=== PATIENT | male | born 1990 | race Caucasian/White ===

== ENCOUNTER 2016-10-17 14:51 | Emergency (ER) | payer OTHER ==
[2016-10-17 14:51] VITALS: BMI 21.9
[2016-10-17 15:00] VITALS: O2SAT 98
--- NOTE | 2016-10-17 15:31 | ED PDOC ---
Arrival/HPI - General Chief Complaint: Male Genitourinary Time Seen by Provider: 10/17/16 14:54 Historian: Patient - History of Present Illness Narrative History of Present Illness (Text): 10/17/16 15:29 26yr old male presents today with long standing hx of testicular pain. pt states he thinks he feels a lump in the right testicle and googled and is worried about cancer. pt states this has been going on for a long time. denies fever/chills. denies n/v/d/c. no abdominal pain. pt states he has occasional pain with urination. no other complaints. no medications taken for pain. Past Medical History - Provider Review Nursing Documentation Reviewed: Yes - Travel History Have you recently traveled outside [place] w/in the past 3 mons?: No - Infectious Disease Hx of Infectious Diseases: None - Tetanus Immunization Tetanus Immunization: Unknown - Cardiac Hx Cardiac Disorders: No - Pulmonary Hx Respiratory Disorders: No - Neurological Hx Neurological Disorder: No - HEENT Hx HEENT Disorder: No - Renal Hx Renal Disorder: No - Endocrine/Metabolic Hx Endocrine Disorders: No - Hematological/Oncological Hx Blood Disorders: No - Integumentary Hx Dermatological Disorder: No - Musculoskeletal/Rheumatological Hx Musculoskeletal Disorders: No - Gastrointestinal Hx Gastrointestinal Disorders: No - Genitourinary/Gynecological Hx Genitourinary Disorders: No - Psychiatric Hx Psychophysiologic Disorder: No Hx Substance Use: No - Surgical History Hx Orthopedic Surgery: Yes Other/Comment: acl both knees, R HAND - Anesthesia Hx Anesthesia: No Hx Anesthesia Reactions: No Hx Malignant Hyperthermia: No Family/Social History - Physician Review Nursing Documentation Reviewed: Yes Family/Social History: Unknown Family HX Smoking Status: Former Smoker Hx Alcohol Use: No Hx Substance Use: No Allergies/Home Meds Allergies/Adverse Reactions: Allergies Penicillins Allergy (Verified 06/18/16 12:43) SWELLING Review of Systems - Review of Systems Constitutional: absent: Fatigue, Fevers Respiratory: absent: SOB, Cough Cardiovascular: absent: Chest Pain, Palpitations Gastrointestinal: absent: Abdominal Pain, Nausea, Vomiting Genitourinary Male: Dysuria, Other (testicular pain). absent: Frequency, Hematuria, Urinary Output Changes Musculoskeletal: absent: Arthralgias, Back Pain, Neck Pain Skin: absent: Rash, Pruritis Neurological: absent: Headache, Dizziness Psychiatric: absent: Anxiety, Depression Physical Exam Vital Signs Reviewed: Yes Vital Signs Temp Pulse Resp BP Pulse Ox 10/17/16 16:49 98.0 F 96 H 18 138/76 98 10/17/16 14:55 98.2 F 120 H 17 140/80 98 Temperature: Afebrile Blood Pressure: Normal Pulse: Tachycardic Respiratory Rate: Normal Appearance: Positive for: Well-Appearing, Non-Toxic, Comfortable Pain Distress: None Mental Status: Positive for: Alert and Oriented X 3 - Systems Exam Head: Present: Atraumatic Neck: Present: Normal Range of Motion Respiratory/Chest: Present: Clear to Auscultation Cardiovascular: Present: Tachycardic. No: Murmurs Abdomen: Present: Normal Bowel Sounds. No: Tenderness, Distention, Peritoneal Signs, Rebound, Guarding Genitourinary Male: Present: Normal External Genitalia, Circumcised Penis, Testicle Tenderness, Other (chaparoned by junaid YEUNG). No: Penile Discharge, Penile Swelling, Masses, Erythema, Hernias, Testicle Swelling Back: Present: Normal Inspection. No: CVA Tenderness, Midline Tenderness, Paraspinal Tenderness Upper Extremity: Present: Normal Inspection Lower Extremity: Present: Normal Inspection Neurological: Present: GCS=15 Skin: Present: Warm, Dry, Normal Color. No: Rashes Psychiatric: Present: Alert, Oriented x 3 Medical Decision Making ED Course and Treatment: 10/17/16 15:31 26yr old male with long time history of testicular pain. noticed lump. no palpable lump appreciated; no erythema; minimally tender testicles bilaterally. Testicular US; FINDINGS: RIGHT TESTICLE: Measures 5.0 x 2.2 x 3.1 cm. Homogeneous echotexture. Blood flow is demonstrated. RIGHT EPIDIDYMIS: Unremarkable. LEFT TESTICLE: Measures 5.0 x 2.2 x 3.1 cm. Homogeneous echotexture. Blood flow is demonstrated. LEFT EPIDIDYMIS: Unremarkable. HYDROCELE: Small bilateral hydroceles. VARICOCELE: Bilateral varicoceles. OTHER FINDINGS: None. IMPRESSION: Small bilateral hydroceles. Bilateral varicoceles. No focal mass evident on the submitted images. The technologist reports no evidence of palpable mass. UA; trace blood gc/chlamydia pending pt reassessment; pt non toxic well appearing; no distress. discussed all results in depth with patient and advised f/u with urologist and pmd. advised return if symptoms worsen, persist or if new symptoms develop. Patient verbalizes understanding of discharge instructions and need for immediate followup. all aspects of this case were discussed the attending of record. impression; testicular pain, varicocele, hydrocele motrin every 6 hours as needed for pain follow up with the urologist within the next 2 days follow up with the primary care physician within the next 2 days return if symptoms worsen,persist or if new symptoms develop. 10/17/16 16:51 10/17/16 17:42 - Lab Interpretations Lab Results: Lab Results 10/17/16 16:00: Urine Color Yellow, Urine Appearance Clear, Urine pH 6.0, Ur Specific [place] 1.025, Urine Protein Negative, Urine Glucose (UA) Negative, Urine Ketones Negative, Urine Blood Trace-intact H, Urine Nitrate Negative, Urine Bilirubin Negative, Urine Urobilinogen 0.2, Ur Leukocyte Esterase Negative , Urine RBC 0 - 2, Urine WBC 0 - 2, Ur Epithelial Cells 0 - 2, Urine Bacteria Trace - RAD Interpretation Radiology Orders: 10/17/16 15:11 TESTES DUPLEX COMPLETE [US] Stat - Medication Orders Current Medication Orders: Discontinued Medications Ketorolac Tromethamine (Toradol) 30 mg IM STAT STA Stop: 10/17/16 16:53 Disposition/Present on Arrival - Present on Arrival Any Indicators Present on Arrival: No History of DVT/PE: No History of Uncontrolled Diabetes: No Urinary Catheter: No History of Decub. Ulcer: No History Surgical Site Infection Following: None - Disposition Have Diagnosis and Disposition been Completed?: Yes Diagnosis: Varicocele, Hydrocele Disposition: HOME/ ROUTINE Disposition Time: 17:43 Patient Plan: Discharge Patient Problems: Current Active Problems Problem Status Diagnosed Hydrocele Acute Varicocele Acute Condition: GOOD Discharge Instructions (ExitCare): Varicocele (ED), Hydrocele (ED) Additional Instructions: motrin every 6 hours as needed for pain follow up with the urologist within the next 2 days follow up with the primary care physician within the next 2 days return if symptoms worsen,persist or if new symptoms develop. Prescriptions: Ibuprofen [Motrin] 600 mg PO Q6H PRN #20 tab PRN Reason: pain/fever reduction Referrals: Jarad Lee MD [Primary Care Provider] - Follow up with primary Nadine Epstein MD [Staff Provider] - Follow up with primary Forms: WORK NOTE
[2016-10-17 16:49] VITALS: BP 138/76; PULSE 96; RESP 18; TEMP 98
--- NOTE | 2016-10-17 16:49 | US ---
HISTORY: testicular pain and lump TECHNIQUE: Realtime sonography through the scrotum with color and doppler flow. COMPARISON: None Available. FINDINGS: RIGHT TESTICLE: Measures 5.0 x 2.2 x 3.1 cm. Homogeneous echotexture. Blood flow is demonstrated. RIGHT EPIDIDYMIS: Unremarkable. LEFT TESTICLE: Measures 5.0 x 2.2 x 3.1 cm. Homogeneous echotexture. Blood flow is demonstrated. LEFT EPIDIDYMIS: Unremarkable. HYDROCELE: Small bilateral hydroceles. VARICOCELE: Bilateral varicoceles. OTHER FINDINGS: None. IMPRESSION: Small bilateral hydroceles. Bilateral varicoceles. No focal mass evident on the submitted images. The technologist reports no evidence of palpable mass.
[2016-10-17 17:22] LABS: URINE BILIRUBIN NEGATIVE (NEGATIVE); URINE BLOOD TRACE-INTACT (NEGATIVE); URINE GLUCOSE (UA) NEGATIVE (NEGATIVE); URINE KETONE NEGATIVE (NEGATIVE); URINE LEUKOCYTE ESTERASE NEGATIVE Leu/uL (NEGATIVE); URINE PROTEIN NEGATIVE mg/dL (<30 mg/dL); URINE UROBILINOGEN 0.2 E.U./dL (<1 E.U./dL)
[2016-10-17 17:36] LABS: URINE APPEARANCE CLEAR (CLEAR); URINE COLOR YELLOW (YELLOW)
[2016-10-17 17:46] LABS: URINE BACTERIA TRACE (NEG); URINE EPITHELIAL CELLS 0 - 2 /hpf (0-5); URINE RBC 0 - 2 /hpf (0-2); URINE WBC 0 - 2 /hpf (0-6)
== END 2016-10-17 18:00 | disposition home or self-care (01) ==
LOC: ED 14:51
DX: I86.1 Scrotal varices (principal); N43.3 Hydrocele, unspecified

== ENCOUNTER 2016-11-04 05:54 | Emergency (ER) | payer SELFPAY ==
[2016-11-04 05:56] VITALS: BMI 23.1
--- NOTE | 2016-11-04 06:08 | ED PDOC ---
Arrival/HPI - General Chief Complaint: GI Problem Time Seen by Provider: 11/04/16 06:04 Historian: Patient - History of Present Illness Narrative History of Present Illness (Text): 11/04/16 06:07 Brook Muniz is a 26 year old male who presents to the Emergency department complaining of nausea and multiple episodes of vomiting for 2 days after eating out at a diner. Patient also reports associated upper abdominal pain and bilateral hand muscle cramping. Patient denies any fever, chills, chest pain, shortness of breath, diarrhea, urinary symptoms, back pain, neck pain, headache, dizziness, or any other complaints. Time/Duration: < week (2 days) Symptom Onset: Gradual Symptom Course: Unchanged Activities at Onset: Rest, Light Context: Home Past Medical History - Provider Review Nursing Documentation Reviewed: Yes - Infectious Disease Hx of Infectious Diseases: None - Tetanus Immunization Tetanus Immunization: Unknown - Cardiac Hx Cardiac Disorders: No - Pulmonary Hx Asthma: Yes - Neurological Hx Neurological Disorder: No - HEENT Hx HEENT Disorder: No - Renal Hx Renal Disorder: No - Endocrine/Metabolic Hx Endocrine Disorders: No - Hematological/Oncological Hx Blood Disorders: No - Integumentary Hx Dermatological Disorder: No - Musculoskeletal/Rheumatological Other/Comment: R Knee ACL - Gastrointestinal Hx Gastrointestinal Disorders: No - Genitourinary/Gynecological Hx Genitourinary Disorders: No - Psychiatric Hx Psychophysiologic Disorder: No Hx Substance Use: No - Surgical History Hx Orthopedic Surgery: Yes Other/Comment: acl both knees, R HAND - Anesthesia Hx Anesthesia: Yes Hx Anesthesia Reactions: No Hx Malignant Hyperthermia: No Family/Social History - Physician Review Nursing Documentation Reviewed: Yes Family/Social History: No Known Family HX Smoking Status: Former Smoker Hx Alcohol Use: No Hx Substance Use: No Allergies/Home Meds Allergies/Adverse Reactions: Allergies Penicillins Allergy (Verified 06/18/16 12:43) SWELLING Review of Systems - Physician Review All systems were reviewed & negative as marked: Yes - Review of Systems Constitutional: Normal. absent: Fevers Eyes: Normal ENT: Normal Respiratory: Normal. absent: SOB, Cough Cardiovascular: Normal. absent: Chest Pain Gastrointestinal: Abdominal Pain, Nausea, Vomiting. absent: Diarrhea Genitourinary Male: Normal. absent: Dysuria, Frequency, Hematuria, Urinary Output Changes Musculoskeletal: Other (+bilateral hand cramping). absent: Back Pain, Neck Pain Skin: Normal. absent: Rash Neurological: Normal. absent: Headache, Dizziness Endocrine: Normal Hemo/Lymphatic: Normal Psychiatric: Normal Physical Exam Vital Signs Reviewed: Yes Vital Signs Temp Pulse Resp BP Pulse Ox 11/04/16 06:16 98.0 F 79 16 0/0 L 100 Temperature: Afebrile Blood Pressure: Normal Pulse: Regular Respiratory Rate: Normal Appearance: Positive for: Well-Appearing, Non-Toxic, Comfortable Pain Distress: None Mental Status: Positive for: Alert and Oriented X 3 - Systems Exam Head: Present: Atraumatic, Normocephalic Pupils: Present: PERRL Extroacular Muscles: Present: EOMI Conjunctiva: Present: Normal Mouth: Present: Moist Mucous Membranes Neck: Present: Normal Range of Motion Respiratory/Chest: Present: Clear to Auscultation, Good Air Exchange. No: Respiratory Distress, Accessory Muscle Use Cardiovascular: Present: Regular Rate and Rhythm, Normal S1, S2. No: Murmurs Abdomen: Present: Tenderness (RUQ tenderness), Normal Bowel Sounds. No: Distention, Peritoneal Signs Back: Present: Normal Inspection Upper Extremity: Present: Normal Inspection. No: Cyanosis, Edema Lower Extremity: Present: Normal Inspection. No: Edema Neurological: Present: GCS=15, CN II-XII Intact, Speech Normal Skin: Present: Warm, Dry, Normal Color. No: Rashes Psychiatric: Present: Alert, Oriented x 3, Normal Insight, Normal Concentration Medical Decision Making ED Course and Treatment: 11/04/16 06:08 Impression: 26 year old male complaining of upper abdominal pain, nausea, vomiting, and bilateral hand muscle cramping for 2 days. Plan: -- US Gallbladder and Pancreas -- Labs, lipase -- Urinalysis -- IV fluids -- Zofran -- Toradol -- Pepcid -- Reassess and disposition Prior Visits: Notes and results from previous visits were reviewed. Progress Notes: 11/04/16 07:00 Case endorsed to /pending labs/ultrasound/reassess/final disposition - RAD Interpretation Radiology Orders: 11/04/16 06:08 GALLBLADDER & PANCREAS [US] Stat - Medication Orders Current Medication Orders: Sodium Chloride (Sodium Chloride 0.9%) 1,000 mls @ 999 mls/hr IV .Q1H1M STA Stop: 11/04/16 07:09 Discontinued Medications Famotidine (Pepcid) 20 mg IVP STAT STA Stop: 11/04/16 06:10 Ketorolac Tromethamine (Toradol) 30 mg IVP ONCE ONE Stop: 11/04/16 06:10 Ondansetron HCl (Zofran Inj) 4 mg IVP ONCE ONE Stop: 11/04/16 06:10 - Scribe Statement The provider has reviewed the documentation as recorded by the Una Morton Provider Attestation: All medical record entries made by the Una were at my direction and personally dictated by me. I have reviewed the chart and agree that the record accurately reflects my personal performance of the history, physical exam, medical decision making, and the department course for this patient. I have also personally directed, reviewed, and agree with the discharge instructions and disposition. Disposition/Present on Arrival - Present on Arrival Any Indicators Present on Arrival: No History of DVT/PE: No History of Uncontrolled Diabetes: No Urinary Catheter: No History of Decub. Ulcer: No History Surgical Site Infection Following: None - Disposition Have Diagnosis and Disposition been Completed?: No Diagnosis: Abdominal pain, Vomiting, Diarrhea Disposition Time: 07:00 Condition: STABLE
[2016-11-04] MEDS ORDERED: Sodium Chloride 0.9% 1,000 ML IV STA (06:09)
[2016-11-04 06:53] LABS: HEMATOCRIT 44.2 % (42.0-52.0); MEAN CELL VOLUME 86.2 fL (80.0-105.0); MEAN CORPUSCULAR HEMOGLOBIN 30.2 pg (25.0-35.0); MEAN CORPUSCULAR HGB CONC 35.1 g/dl (31.0-37.0); MEAN PLATELET VOLUME 10.7 fl (7.0-11.0); RED CELL DISTRIBUTION WIDTH 12.4 % (11.5-14.5); WHITE BLOOD COUNT 8.1 10^3/ul (4.5-11.0)
[2016-11-04 07:00] LABS: ALB/GLOB RATIO 1.3 (1.1-1.8); ALKALINE PHOSPHATASE 75 U/L (38-133); ALT/SGPT 34 U/L (7-56); AST/SGOT 27 U/L (15-59); BILIRUBIN,TOTAL 2.1 mg/dL (0.2-1.3); BLOOD UREA NITROGEN 11 mg/dL (7-21); CARBON DIOXIDE 23 mmol/L (21-33); CHLORIDE 100 mmol/L (98-107); GFR AFRICAN-AMERICAN > 60; GLUCOSE,RANDOM 144 mg/dL (70-110); LIPASE 63 U/L (23-300); POTASSIUM 3.5 mmol/L (3.6-5.0); SODIUM 140 mmol/L (132-148); TOTAL PROTEIN 8.4 g/dL (5.8-8.3)
--- NOTE | 2016-11-04 07:28 | ED PDOC ---
Physical Exam Vital Signs Temp Pulse Resp BP Pulse Ox 11/04/16 06:16 98.0 F 79 16 0/0 L 100 Medical Decision Making ED Course and Treatment: 11/04/16 07:00 Case signed out to me by Dr. Celis pending Ultrasound and labs. 10:00 the pt improved after treatment. he has a benign abdominal exam. he says this pain has been recurrent for several months and I suggest he follow up with a GI specialist, especially in light of the hepatic steatosis which was also present on CT a couple months ago. he is comfortable w dc at this time, will return if worse. HISTORY: Right upper quadrant pain COMPARISON: CT abdomen and pelvis from 09/16/2016 TECHNIQUE: Grayscale imaging was performed. FINDINGS: LIVER: Measures 18.6 cm in length. There is mild diffuse increased echogenicity of the liver parenchyma. No mass. No intrahepatic bile duct dilatation. GALLBLADDER: Unremarkable. No gallstones. COMMON BILE DUCT: Measures 5.0 mm. No stones. No dilatation. PANCREAS: Unremarkable as visualized. No mass. No ductal dilatation. RIGHT KIDNEY: Measures 11.6 cm in length. Normal echogenicity. No calculus, mass, or hydronephrosis. AORTA: No aneurysmal dilatation. IVC: Unremarkable. OTHER FINDINGS: None . IMPRESSION: Mild hepatomegaly. Diffuse increased echogenicity in the liver may reflect hepatic steatosis however parenchymal infectious/ inflammatory etiologies cannot be entirely excluded. Clinical and laboratory correlation is advised. No evidence of cholelithiasis or biliary dilatation. - Lab Interpretations Lab Results: 11/04/16 06:30 11/04/16 06:30 Lab Results 11/04/16 06:30: WBC 8.1, RBC 5.13, Hgb 15.5, Hct 44.2, MCV 86.2, MCH 30.2, MCHC 35.1, RDW 12.4, Plt Count 250, MPV 10.7, Sodium 140, Potassium 3.5 L, Chloride 100, Carbon Dioxide 23, Anion Gap 21 H, BUN 11, Creatinine 1.0, Est GFR ( Amer) > 60, Est GFR (Non-Af Amer) > 60, Random Glucose 144 H, Calcium 10.0, Total Bilirubin 2.1 H, AST 27, ALT 34, Alkaline Phosphatase 75, Total Protein 8.4 H, Albumin 4.8, Globulin 3.6, Albumin/Globulin Ratio 1.3, Lipase 63 - RAD Interpretation Radiology Orders: 11/04/16 06:08 GALLBLADDER & PANCREAS [US] Stat - Medication Orders Current Medication Orders: Discontinued Medications Famotidine (Pepcid) 20 mg IVP STAT STA Stop: 11/04/16 06:10 Last Admin: 11/04/16 06:36 Dose: 20 MG IVP Administration Document 11/04/16 06:36 ANDERSON (Rec: 11/04/16 06:36 [id number] Charges for Administration # of IVP Administrations 1 Sodium Chloride (Sodium Chloride 0.9%) 1,000 mls @ 999 mls/hr IV .Q1H1M STA Stop: 11/04/16 07:09 Last Admin: 11/04/16 06:27 Dose: 999 MLS/HR eMAR Start Stop Document 11/04/16 06:27 ANDERSON (Rec: 11/04/16 06:28 ANDERSON [facility] [id number]) Intravenous Solution Start Date 11/04/16 Start Time 06:27 Ketorolac Tromethamine (Toradol) 30 mg IVP ONCE ONE Stop: 11/04/16 06:10 Last Admin: 11/04/16 06:36 Dose: 30 MG IVP Administration Document 11/04/16 06:36 ANDERSON (Rec: 11/04/16 06:36 [id number]) Charges for Administration # of IVP Administrations 1 Ondansetron HCl (Zofran Inj) 4 mg IVP ONCE ONE Stop: 11/04/16 06:10 Last Admin: 11/04/16 06:36 Dose: 4 MG IVP Administration Document 11/04/16 06:36 ANDERSON (Rec: 11/04/16 06:36 [facility] [id number]) Charges for Administration # of IVP Administrations 1 - Scribe Statement The provider has reviewed the documentation as recorded by the Scribe Madhu Bates All medical record entries made by the Scribe were at my direction and personally dictated by me. I have reviewed the chart and agree that the record accurately reflects my personal performance of the history, physical exam, medical decision making, and the department course for this patient. I have also personally directed, reviewed, and agree with the discharge instructions and disposition. Disposition/Present on Arrival - Present on Arrival Any Indicators Present on Arrival: No History of DVT/PE: No History of Uncontrolled Diabetes: No Urinary Catheter: No History of Decub. 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 Return to the ER for any worsening symptoms or for any other concerns. Prescriptions: Polyethylene Glycol 3350 [Miralax] 17 g PO DAILY PRN #1 bottle PRN Reason: Constipation Naproxen 500 mg PO Q12H PRN #8 tab PRN Reason: Pain, Moderate (4-7) Famotidine [Pepcid] 20 mg PO DAILY #14 tab Ondansetron ODT [Zofran ODT] 4 mg PO Q4H PRN #10 odt PRN Reason: Nausea/Vomiting Referrals: Jraad Lee MD [Primary Care Provider] - Follow up with primary Mohsen Harrison MD [Staff Provider] - Follow up with primary
[2016-11-04 07:43] VITALS: TEMP 97.8
[2016-11-04] MEDS ORDERED: Morphine 4 mg/ml ISec IVP STA ×2 (08:06→09:04)
--- NOTE | 2016-11-04 08:42 | US ---
HISTORY: Right upper quadrant pain COMPARISON: CT abdomen and pelvis from 09/16/2016 TECHNIQUE: Grayscale imaging was performed. FINDINGS: LIVER: Measures 18.6 cm in length. There is mild diffuse increased echogenicity of the liver parenchyma. No mass. No intrahepatic bile duct dilatation. GALLBLADDER: Unremarkable. No gallstones. COMMON BILE DUCT: Measures 5.0 mm. No stones. No dilatation. PANCREAS: Unremarkable as visualized. No mass. No ductal dilatation. RIGHT KIDNEY: Measures 11.6 cm in length. Normal echogenicity. No calculus, mass, or hydronephrosis. AORTA: No aneurysmal dilatation. IVC: Unremarkable. OTHER FINDINGS: None . IMPRESSION: Mild hepatomegaly. Diffuse increased echogenicity in the liver may reflect hepatic steatosis however parenchymal infectious/ inflammatory etiologies cannot be entirely excluded. Clinical and laboratory correlation is advised. No evidence of cholelithiasis or biliary dilatation.
[2016-11-04] MEDS ORDERED: Alum-Mag Hydrox-Simethicone Susp (30 mL) PO STA (09:02)
[2016-11-04 10:20] VITALS: BP 135/76; PULSE 85; RESP 18; O2SAT 98
[2016-11-04 10:59] LABS: PH,URINE 7.5 (4.7-8.0); URINE BILIRUBIN NEGATIVE (NEGATIVE); URINE BLOOD TRACE-INTACT (NEGATIVE); URINE GLUCOSE (UA) NEGATIVE (NEGATIVE); URINE KETONE 40 mg/dL (NEGATIVE); URINE LEUKOCYTE ESTERASE NEGATIVE Leu/uL (NEGATIVE); URINE PROTEIN NEGATIVE mg/dL (<30 mg/dL); URINE UROBILINOGEN 0.2 E.U./dL (<1 E.U./dL)
[2016-11-04 11:03] LABS: URINE APPEARANCE CLEAR (CLEAR); URINE COLOR LIGHT YELLOW (YELLOW)
[2016-11-04 11:13] LABS: URINE BACTERIA TRACE (NEG); URINE EPITHELIAL CELLS 0 - 2 /hpf (0-5); URINE RBC 0 - 2 /hpf (0-2); URINE WBC 0 - 2 /hpf (0-6)
== END 2016-11-04 10:19 | disposition home or self-care (01) ==
LOC: ED 05:54
DX: R10.9 Unspecified abdominal pain (principal); R11.10 Vomiting, unspecified; R19.7 Diarrhea, unspecified
CPT/HCPCS: 76705; 80053; 81001; 83690; 85027; 96374; 96375; 96376; 99284; J1885; J2270; J2405; J7040

== ENCOUNTER 2016-11-07 16:38 | Emergency (ER) | payer OTHER ==
[2016-11-07 16:38] VITALS: BMI 23.1
[2016-11-07 16:53] VITALS: TEMP 98.2; O2SAT 100
[2016-11-07] MEDS ORDERED: Sodium Chloride 0.9% 1,000 ML IV STA (17:10)
--- NOTE | 2016-11-07 17:17 | ED PDOC ---
Arrival/HPI - General Chief Complaint: GI Problem Time Seen by Provider: 11/07/16 16:42 - History of Present Illness Narrative History of Present Illness (Text): 11/07/16 17:15 26 year old male presents to the emergency department with epigastric abdominal pain and nausea/vomiting for the past several days. Patient was recently seen for the same complaint and states he has an appointment with GI next Friday. Denies new complaints. Time/Duration: < week Symptom Onset: Gradual Symptom Course: Unchanged Modifying Factors (Text): None Associated Symptoms (Text): None Past Medical History - Provider Review Nursing Documentation Reviewed: Yes - Infectious Disease Hx of Infectious Diseases: None - Tetanus Immunization Tetanus Immunization: Unknown - Cardiac Hx Cardiac Disorders: No - Pulmonary Hx Asthma: Yes - Neurological Hx Neurological Disorder: No - HEENT Hx HEENT Disorder: No - Renal Hx Renal Disorder: No - Endocrine/Metabolic Hx Endocrine Disorders: No - Hematological/Oncological Hx Blood Disorders: No - Integumentary Hx Dermatological Disorder: No - Musculoskeletal/Rheumatological Other/Comment: R Knee ACL - Gastrointestinal Hx Gastrointestinal Disorders: No - Genitourinary/Gynecological Hx Genitourinary Disorders: No - Psychiatric Hx Psychophysiologic Disorder: No Hx Substance Use: No - Surgical History Hx Orthopedic Surgery: Yes Other/Comment: acl both knees, R HAND - Anesthesia Hx Anesthesia: Yes Hx Anesthesia Reactions: No Hx Malignant Hyperthermia: No Family/Social History - Physician Review Nursing Documentation Reviewed: Yes Family/Social History: Unknown Family HX Smoking Status: Former Smoker Hx Alcohol Use: No Hx Substance Use: No Allergies/Home Meds Allergies/Adverse Reactions: Allergies Penicillins Allergy (Verified 11/07/16 16:54) SWELLING Review of Systems - Physician Review All systems were reviewed & negative as marked: Yes - Review of Systems Respiratory: absent: SOB Cardiovascular: absent: Chest Pain Gastrointestinal: Abdominal Pain, Nausea, Vomiting. absent: Diarrhea Physical Exam Vital Signs Reviewed: Yes Vital Signs Temp Pulse Resp BP Pulse Ox 11/07/16 18:52 84 16 120/70 100 11/07/16 16:52 98.2 F 86 18 118/69 100 Temperature: Afebrile Blood Pressure: Normal Pulse: Regular Respiratory Rate: Normal Appearance: Positive for: Well-Appearing, Non-Toxic, Comfortable Pain Distress: None Mental Status: Positive for: Alert and Oriented X 3 - Systems Exam Head: Present: Atraumatic, Normocephalic Pupils: Present: PERRL Extroacular Muscles: Present: EOMI Conjunctiva: Present: Normal Mouth: Present: Moist Mucous Membranes Neck: Present: Normal Range of Motion Respiratory/Chest: Present: Clear to Auscultation, Good Air Exchange. No: Respiratory Distress, Accessory Muscle Use Cardiovascular: Present: Regular Rate and Rhythm, Normal S1, S2. No: Murmurs Abdomen: Present: Tenderness (Epigastric), Normal Bowel Sounds. No: Distention , Peritoneal Signs Back: Present: Normal Inspection Upper Extremity: Present: Normal Inspection. No: Cyanosis, Edema Lower Extremity: Present: Normal Inspection. No: Edema Neurological: Present: GCS=15, CN II-XII Intact, Speech Normal Skin: Present: Warm, Dry, Normal Color. No: Rashes Psychiatric: Present: Alert, Oriented x 3, Normal Insight, Normal Concentration Medical Decision Making ED Course and Treatment: Impression: 26 year old male presents with abdominal pain, nausea, vomiting for the past several days. Differential Diagnosis include but are not limited to: Gastritis vs ulcer Plan: -- Protonix, Zofran, IV Fluids -- Labs -- Reassess and disposition Prior Visits: Notes and results from previous visits were reviewed. Patient last seen in the ED on 11/04/16 for vomiting and discharged home. Progress Notes: 11/07/16 18:38 Patient started developing RLQ pain, ordered CT, but pt now requesting to sign out AMA Leaving Against Medical Advice (AMA): The patient is choosing to leave against medical advice. I have personally explained to the patient that choosing to do so may result in permanent bodily harm or . I have discussed at great length that without further evaluation and monitoring there may be unforeseen circumstances and/or deterioration causing permanent bodily harm or as a result of their choice. The patient is alert, oriented, and shows the mental capacity to make clear decisions regarding the patients health care at this time. The patient continues to wish to leave against medical advice. The patient has been advised that they should return to the emergency room immediately if they change their mind at any time, or if their condition begins to change or worsen in any way. - Lab Interpretations Lab Results: 11/07/16 17:35 11/07/16 17:35 Lab Results 11/07/16 17:35: WBC 10.4 D, RBC 5.26, Hgb 16.4, Hct 45.4, MCV 86.3, MCH 31.2, MCHC 36.1, RDW 12.4, Plt Count 235, MPV 10.8, Gran % 77.6 H, Lymph % (Auto) 14.2 L, Kent % (Auto) 7.8 H, Eos % (Auto) 0.2 L, Baso % (Auto) 0.2, Gran # 8.09 H, Lymph # 1.5, Kent # 0.8 H, Eos # 0.0, Baso # 0.02, PT 12.8 H, INR 1.19 H, APTT 29.1, Sodium 140, Potassium 3.9, Chloride 101, Carbon Dioxide 24, Anion Gap 19, BUN 13, Creatinine 1.1, Est GFR ( Amer) > 60, Est GFR (Non-Af Amer) > 60, Random Glucose 96, Calcium 10.0, Total Bilirubin 2.4 H, AST 30, ALT 37, Alkaline Phosphatase 74, Total Protein 9.0 H, Albumin 5.1 H, Globulin 3.9, Albumin/Globulin Ratio 1.3, Lipase 67 - Medication Orders Current Medication Orders: Discontinued Medications Sodium Chloride (Sodium Chloride 0.9%) 1,000 mls @ 1,000 mls/hr IV .Q1H STA Stop: 11/07/16 18:09 Last Admin: 11/07/16 17:30 Dose: 1,000 MLS/HR eMAR Start Stop Document 11/07/16 17:30 SF (Rec: 11/07/16 17:42 SF [id number]) Intravenous Solution Start Date 11/07/16 Start Time 17:30 End Date 11/07/16 End time 18:30 Total Infusion Time 60 Ondansetron HCl (Zofran Inj) 4 mg IVP STAT STA Stop: 11/07/16 17:11 Last Admin: 11/07/16 17:42 Dose: 4 MG IVP Administration Document 11/07/16 17:42 SF (Rec: 11/07/16 17:42 [id number]) Charges for Administration # of IVP Administrations 1 Pantoprazole Sodium (Protonix Inj) 40 mg IVP STAT STA Stop: 11/07/16 17:11 Last Admin: 11/07/16 17:41 Dose: 40 MG IVP Administration Document 11/07/16 17:41 SF (Rec: 11/07/16 17:41 [facility]-[id number]) Charges for Administration # of IVP Administrations 1 - Scribe Statement The provider has reviewed the documentation as recorded by the Una Hernandez Provider Scribe Attestation: All medical record entries made by the Scribe were at my direction and personally dictated by me. I have reviewed the chart and agree that the record accurately reflects my personal performance of the history, physical exam, medical decision making, and the department course for this patient. I have also personally directed, reviewed, and agree with the discharge instructions and disposition. Disposition/Present on Arrival - Present on Arrival Any Indicators Present on Arrival: No History of DVT/PE: No History of Uncontrolled Diabetes: No Urinary Catheter: No History of Decub. Ulcer: No History Surgical Site Infection Following: None - Disposition Have Diagnosis and Disposition been Completed?: Yes Diagnosis: Abdominal pain Disposition: AGAINST MEDICAL ADVICE Disposition Time: 07:00 Condition: UNKNOWN Discharge Instructions (ExitCare): Acute Abdominal Pain (ED) Additional Instructions: please follow up with your specialist. return to er with worsneing symptoms or concerns. you are declining CT imaging of your abd. you able to return at any time with any concern Prescriptions: Pantoprazole Sodium [Protonix] 40 mg PO DAILY #20 ect Referrals: Jarad Lee MD [Primary Care Provider] - Follow up with primary
[2016-11-07 17:46] LABS: ADD MANUAL DIFF? NO
[2016-11-07 17:55] LABS: BASO # 0.02 K/mm3 (0.0-2.0); BASO % 0.2 % (0.0-3.0); EOS % 0.2 % (1.5-5.0); GRAN # 8.09 (1.4-6.5); GRAN % 77.6 % (50.0-68.0); HEMATOCRIT 45.4 % (42.0-52.0); LYMPH # 1.5 (1.2-3.4); LYMPH % 14.2 % (22.0-35.0); MEAN CELL VOLUME 86.3 fL (80.0-105.0); MEAN CORPUSCULAR HEMOGLOBIN 31.2 pg (25.0-35.0); MEAN CORPUSCULAR HGB CONC 36.1 g/dl (31.0-37.0); MEAN PLATELET VOLUME 10.8 fl (7.0-11.0); MONO # 0.8 (0.1-0.6); MONO % 7.8 % (1.0-6.0); PLATELET COUNT 235 10^3/uL (120.0-450.0); RED CELL DISTRIBUTION WIDTH 12.4 % (11.5-14.5); WHITE BLOOD COUNT 10.4 10^3/ul (4.5-11.0)
[2016-11-07 18:05] LABS: INR 1.19 (0.93-1.08); PARTIAL THROMBOPLASTIN TIME 29.1 Seconds (23.7-30.8)
[2016-11-07 18:06] LABS: ALB/GLOB RATIO 1.3 (1.1-1.8); ALKALINE PHOSPHATASE 74 U/L (38-133); ALT/SGPT 37 U/L (7-56); AST/SGOT 30 U/L (15-59); BILIRUBIN,TOTAL 2.4 mg/dL (0.2-1.3); BLOOD UREA NITROGEN 13 mg/dL (7-21); CARBON DIOXIDE 24 mmol/L (21-33); CHLORIDE 101 mmol/L (98-107); GFR AFRICAN-AMERICAN > 60; GLUCOSE,RANDOM 96 mg/dL (70-110); LIPASE 67 U/L (23-300); POTASSIUM 3.9 mmol/L (3.6-5.0); SODIUM 140 mmol/L (132-148)
[2016-11-07 18:52] VITALS: BP 120/70; PULSE 84; RESP 16
== END 2016-11-07 18:52 | disposition left against medical advice (07) ==
LOC: ED 16:38
DX: R10.9 Unspecified abdominal pain (principal)
CPT/HCPCS: 80053; 83690; 85025; 85610; 85730; 96361; 96374; 96375; 99284; C9113; J2405; J7040

== ENCOUNTER 2016-12-27 23:41 | Emergency (ER) | payer SELFPAY ==
[2016-12-27 23:55] VITALS: BMI 22.5
[2016-12-28 00:02] VITALS: BP 141/82; PULSE 95; RESP 18; TEMP 98.7; O2SAT 99
[2016-12-28] MEDS ORDERED: Oxycodone/Acetaminophen 5/325 mg Tab PO STA (00:06)
--- NOTE | 2016-12-28 00:22 | ED PDOC ---
Arrival/HPI - General Chief Complaint: Finger,Hand,&Wrist Time Seen by Provider: 12/28/16 00:03 Historian: Patient - History of Present Illness Narrative History of Present Illness (Text): 12/28/16 00:25 A 26 year old male presents to the emergency department complaining of right 5th digit finger injury that developed about 3 hours ago while playing basketball. Patient reports was hanging from rim. Patient also reports an increase in pain, swelling and bruising of right 5th digit within the last 3 hours. Patient denies any numbness, other injuries or complaints at this time. Time/Duration: 1-3 hours Symptom Onset: Sudden Symptom Course: Unchanged Activities at Onset: Other (basketball) Associated Symptoms (Text): none Past Medical History - Provider Review Nursing Documentation Reviewed: Yes - Infectious Disease Hx of Infectious Diseases: None - Tetanus Immunization Tetanus Immunization: Unknown - Cardiac Hx Cardiac Disorders: No - Pulmonary Hx Asthma: Yes - Neurological Hx Neurological Disorder: No - HEENT Hx HEENT Disorder: No - Renal Hx Renal Disorder: No - Endocrine/Metabolic Hx Endocrine Disorders: No - Hematological/Oncological Hx Blood Disorders: No - Integumentary Hx Dermatological Disorder: No - Musculoskeletal/Rheumatological Other/Comment: R Knee ACL - Gastrointestinal Hx Gastrointestinal Disorders: No - Genitourinary/Gynecological Hx Genitourinary Disorders: No - Psychiatric Hx Psychophysiologic Disorder: No Hx Substance Use: No - Surgical History Hx Orthopedic Surgery: Yes Other/Comment: acl both knees, R HAND - Anesthesia Hx Anesthesia: Yes Hx Anesthesia Reactions: No Hx Malignant Hyperthermia: No Family/Social History - Physician Review Nursing Documentation Reviewed: Yes Family/Social History: No Known Family HX Smoking Status: Former Smoker Hx Alcohol Use: No Hx Substance Use: No Allergies/Home Meds Allergies/Adverse Reactions: Allergies Penicillins Allergy (Verified 12/27/16 23:56) SWELLING Review of Systems - Physician Review All systems were reviewed & negative as marked: Yes - Review of Systems Constitutional: absent: Fevers Cardiovascular: absent: Chest Pain Musculoskeletal: Other (right 5th digit finger pain, swelling, bruising) Physical Exam - Physical Exam Narrative Physical Exam (Text): 12/28/16 00:19 Constitutional: No acute distress. Head: Normocephalic. Atraumatic. Eyes: PERRL. ENT: Moist mucous membranes. Neck: Supple. Cardiovascular: Regular rate. Chest: No tenderness. Respiratory: Clear to auscultation bilaterally. GI: Soft. Nontender. Nondistended. Back: No CVA tenderness. Musculoskeletal: 5th digit ecchymosis to DIP, Capillary refill < 2, Full ROM active and passive, light touch sensation intact. Skin: No rash. Neurologic: Alert, no focal deficit. Vital Signs Reviewed: Yes Vital Signs Temp Pulse Resp BP Pulse Ox 12/28/16 00:00 98.7 F 95 H 18 141/82 99 Temperature: Afebrile Blood Pressure: Normal Pulse: Regular Respiratory Rate: Normal Appearance: Positive for: Well-Appearing, Non-Toxic, Comfortable Pain Distress: None Mental Status: Positive for: Alert and Oriented X 3 Medical Decision Making ED Course and Treatment: 12/28/16 00:18 Impression: A 26 year old male with right 5th digit finger injury. Plan: -- Xray right 5th digit -- Percocet -- Reassess and disposition Prior Visits: Notes and results from previous visits were reviewed. Patient last reported to the emergency department on 11/07/16 for evaluation of epigastric abdominal pain and nausea/vomiting. Patient advised to follow up with specialist. Patient declined CT imaging of abdomen. Progress Notes: 12/28/16 00:20 Patient offered pain medication. Patient states Motrin gives him instant heart burn, thinks may have ulcers. Patient also states has nausea with Tylenol. Previous ACLs injury, patient on percocet, which helps patient symptoms. Reviewed patient prescription drug registry. Patient one previous percocet and 2 promethazine with codeine. Does not have two prescriptions within last 6 months. 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 12/28/16 00:26 Splint applied, fracture at dorsal aspect of distal phalanx. On re-evaluation, patient feels better and is in no acute distress. I have discussed the results and plan with the patient, who expresses understanding. Patient in agreement with plan to be discharged home. Patient is stable for discharge. Patient was instructed to follow up with physician or return if symptoms worsen or new concerning symptoms arise. - RAD Interpretation Radiology Orders: 12/28/16 00:07 HAND RIGHT 5TH DIGIT (FINGER) [RAD] Stat - Medication Orders Current Medication Orders: Discontinued Medications Oxycodone/Acetaminophen (Percocet 5/325 Mg Tab) 1 tab PO STAT STA Stop: 12/28/16 00:07 Last Admin: 12/28/16 00:11 Dose: 1 tab - Scribe Statement The provider has reviewed the documentation as recorded by the Una Hi Provider Una Attestation: All medical record entries made by the Belleibdebra were at my direction and personally dictated by me. I have reviewed the chart and agree that the record accurately reflects my personal performance of the history, physical exam, medical decision making, and the department course for this patient. I have also personally directed, reviewed, and agree with the discharge instructions and disposition. Disposition/Present on Arrival - Present on Arrival Any Indicators Present on Arrival: No History of DVT/PE: No History of Uncontrolled Diabetes: No Urinary Catheter: No History of Decub. Ulcer: No History Surgical Site Infection Following: None - Disposition Have Diagnosis and Disposition been Completed?: Yes Diagnosis: Finger fracture Disposition: HOME/ ROUTINE Disposition Time: 00:26 Patient Plan: Discharge Condition: STABLE Discharge Instructions (ExitCare): Finger Fracture (ED) Prescriptions: oxyCODONE/Acetaminophen [Percocet 5/325 mg Tab] 1 tab PO Q6 #10 tab Referrals: Jarad Lee MD [Primary Care Provider] - Follow up with primary [facility] [place]Outside] - Follow up with primary
--- NOTE | 2016-12-28 10:18 | RAD ---
PROCEDURE: Right Hand Radiographs. HISTORY: finger injury COMPARISON: None. FINDINGS: BONES: Question fracture of the dorsal aspect of the base of the 5th distal phalanx. JOINTS: Normal. No osteoarthritic changes. SOFT TISSUES: Normal. OTHER FINDINGS: None. IMPRESSION: Question fracture of the dorsal aspect of the base of the 5th distal phalanx.
== END 2016-12-28 00:56 | disposition home or self-care (01) ==
LOC: ED 23:41
DX: S62.636A Displaced fracture of distal phalanx of right little finger, initial encounter for closed fracture (principal); X50.0XXA Overexertion from strenuous movement or load, initial encounter; Y93.67 Activity, basketball; Y92.39 Other specified sports and athletic area as the place of occurrence of the external cause

== ENCOUNTER 2017-12-30 15:22 | Emergency (ER) | payer SELFPAY ==
[2017-12-30 15:53] VITALS: TEMP 98.5
[2017-12-30 17:13] VITALS: RESP 18; O2SAT 100
--- NOTE | 2017-12-30 17:30 | ED PDOC ---
Arrival/HPI - General Chief Complaint: Lower Extremity Problem/Injury Time Seen by Provider: 12/30/17 16:18 Historian: Patient - History of Present Illness Narrative History of Present Illness (Text): 12/30/17 17:26 27yr old male with prior hx of right knee surgery presents today with right knee pain s/p injury. [place] was uneven and he heard a pop in the knee. pt states last time he heard the popping sound in the knee he needed surgery. pt states pain is worse with full extension and full flexion of the knee. No medications have been taken for pain at home. Patient denies numbness weakness or tingling in the extremity. Denies fevers or chills. No other complaints. Patient states he is able to ambulate on the leg with pain. Time/Duration: Other (yesterday) Symptom Onset: Sudden Symptom Course: Unchanged Quality: Aching Past Medical History - Provider Review Nursing Documentation Reviewed: Yes - Travel History Have you recently traveled outside [place] w/in the past 3 mons?: No - Infectious Disease Hx of Infectious Diseases: None - Tetanus Immunization Tetanus Immunization: Unknown - Cardiac Hx Cardiac Disorders: No - Pulmonary Hx Respiratory Disorders: Yes Hx Asthma: Yes - Neurological Hx Neurological Disorder: No - HEENT Hx HEENT Disorder: No - Renal Hx Renal Disorder: No - Endocrine/Metabolic Hx Endocrine Disorders: No - Hematological/Oncological Hx Blood Disorders: No - Integumentary Hx Dermatological Disorder: No - Musculoskeletal/Rheumatological Hx Musculoskeletal Disorders: Yes Other/Comment: R Knee ACL - Gastrointestinal Hx Gastrointestinal Disorders: No - Genitourinary/Gynecological Hx Genitourinary Disorders: No - Psychiatric Hx Psychophysiologic Disorder: No Hx Substance Use: No - Surgical History Hx Orthopedic Surgery: Yes Other/Comment: acl both knees, R HAND - Anesthesia Hx Anesthesia: Yes Hx Anesthesia Reactions: No Hx Malignant Hyperthermia: No Family/Social History - Physician Review Nursing Documentation Reviewed: Yes Family/Social History: Unknown Family HX Smoking Status: Former Smoker Hx Alcohol Use: Yes Frequency of alcohol use: Socially Hx Substance Use: No Allergies/Home Meds Allergies/Adverse Reactions: Allergies Penicillins Allergy (Verified 12/30/17 15:48) SWELLING Review of Systems - Review of Systems Constitutional: absent: Fatigue, Fevers Respiratory: absent: SOB, Cough Cardiovascular: absent: Chest Pain, Palpitations Gastrointestinal: absent: Abdominal Pain, Nausea, Vomiting Genitourinary Male: absent: Dysuria, Frequency, Hematuria Musculoskeletal: Arthralgias (right knee pain). absent: Back Pain, Neck Pain Skin: absent: Rash, Pruritis Neurological: absent: Headache, Dizziness Psychiatric: absent: Anxiety, Depression, Suicidal Ideation Physical Exam Vital Signs Reviewed: Yes Vital Signs Temp Pulse Resp BP Pulse Ox 12/30/17 17:13 79 18 128/68 100 12/30/17 15:49 98.5 F 86 16 134/78 99 Temperature: Afebrile Blood Pressure: Normal Pulse: Regular Respiratory Rate: Normal Appearance: Positive for: Well-Appearing, Non-Toxic, Comfortable Pain Distress: None Mental Status: Positive for: Alert and Oriented X 3 - Systems Exam Head: Present: Atraumatic Mouth: Present: Moist Mucous Membranes Respiratory/Chest: Present: Clear to Auscultation Cardiovascular: Present: Regular Rate and Rhythm Back: Present: Normal Inspection Lower Extremity: Present: NORMAL PULSES, Normal ROM, Tenderness (right knee; + ttp over anterior and medial aspect of knee; no edema, no erythema; no ecchymosis; cap refill <2. ), Neurovascularly Intact. No: CALF TENDERNESS, Swelling, Erythema, Deformity, Capillary Refill < 2 s Neurological: Present: GCS=15, Speech Normal Skin: Present: Warm, Dry, Normal Color. No: Rashes Psychiatric: Present: Alert, Oriented x 3 Medical Decision Making ED Course and Treatment: 12/30/17 17:37 Patient nontoxic well-appearing in no distress with stable vital signs X-rays of the knee: no fracture, screws in place toradol IM Patient placed in knee immobilizer. Crutches given for ambulation I discussed all results with patient advised to followup with the orthopedist for the next 2 days. Return if symptoms worsen persist or new symptoms develop i advised the patient that although the xrays show no fracture; there is still a possibility for ligamentous or tendon injury the patient must see the orthopedist for further evaluation. Patient verbalizes understanding of discharge instructions and need for immediate followup. all aspects of this case were discussed the attending of record. Impression: knee pain Motrin every 6 hours as needed for pain Rest, ice, compression, elevation Use crutches for ambulation Followup with the orthopedist within the next 2 days Followup with primary care physician within the next 2 days Return if symptoms worsen persist or if new symptoms develop - RAD Interpretation Radiology Orders: 12/30/17 16:23 KNEE W PATELLA RIGHT 3 VIEW [RAD] Stat - Medication Orders Current Medication Orders: Discontinued Medications Ketorolac Tromethamine (Toradol) 60 mg IM STAT STA Stop: 12/30/17 16:24 Last Admin: 12/30/17 16:54 Dose: 60 mg MAR Pain Assessment Document 12/30/17 16:54 HI (Rec: 12/30/17 16:54 HI [id number]) Pain Reassessment Is this a pain reassessment? No Sleep Is patient sleeping during reassessment? No Presence of Pain Presence of Pain Yes Location Left, Right or Bilateral Right Pain Location Body Site Knee Description Description Constant IM Administration Charges Document 12/30/17 16:54 HI (Rec: 12/30/17 16:54 HI [id number]) Injection Site MAR Injection Site Right Gluteus Narendra Charges for Administration # of IM Administrations 1 Disposition/Present on Arrival - Present on Arrival Any Indicators Present on Arrival: No History of DVT/PE: No History of Uncontrolled Diabetes: No Urinary Catheter: No History of Decub. Ulcer: No History Surgical Site Infection Following: None - Disposition Have Diagnosis and Disposition been Completed?: Yes Diagnosis: Knee pain Disposition: HOME/ ROUTINE Disposition Time: 17:39 Patient Plan: Discharge Condition: GOOD Discharge Instructions (ExitCare): Knee Pain Additional Instructions: Motrin every 6 hours as needed for pain Rest, ice, compression, elevation Use crutches for ambulation Followup with the orthopedist within the next 2 days Followup with primary care physician within the next 2 days Return if symptoms worsen persist or if new symptoms develop Prescriptions: Ibuprofen [Motrin] 600 mg PO Q6H PRN #20 tab PRN Reason: pain/fever reduction Referrals: Chen Lee MD [Primary Care Provider] - Follow up with primary [facility] [Outside] - Follow up with primary [facility] [place] [Outside] - Follow up with primary Susanna Baltazar MD [Staff Provider] - Follow up with primary Forms: [email or web address] (Romansh), WORK NOTE
--- NOTE | 2017-12-30 17:44 | RAD ---
PROCEDURE: Right Knee Radiographs. HISTORY: knee pain COMPARISON: None. FINDINGS: BONES: Findings related to prior ACL repair. No fracture identified. JOINTS: Normal. No osteoarthritis. JOINT EFFUSION: None. OTHER FINDINGS: None. IMPRESSION: No acute findings related to/accounting for the clinical presentation.
[2017-12-30 17:53] VITALS: BP 126/65; PULSE 71
== END 2017-12-30 17:45 | disposition home or self-care (01) ==
LOC: ED 15:22
DX: M25.561 Pain in right knee (principal)
CPT/HCPCS: 29530; 73562; 96372; 99284; J1885